=== PATIENT | male | born 1955 | race Caucasian/White ===

== ENCOUNTER 2016-07-02 19:35 | Inpatient (IN) | payer SELFPAY ==
[~2016-07-02] VITALS: Ht 180.3 cm; Wt 99.9 kg
[~2016-07-02 19:35] MED LIST: ACET-1757 PO; ASPI-621 PO; CARV12.52 PO; FURO20TA3 PO; LISI-167 PO; NICO1PAT4 TD; POTA20PA PO; SPIR25TA3 PO; WARF5TAB PO
[2016-07-02] MEDS ORDERED: DILTIAZEM 5 MG/ML, 5ML ONE (20:28)
[2016-07-02] MEDS ORDERED: ASPIRIN 81 MG TABLET CHEW ONE (20:28)
[2016-07-02] MEDS ORDERED: LORazepam 2 MG/ML, 1ML ONE (20:29)
[2016-07-02] MEDS ORDERED: DILTIAZEM 5 MG/ML, 5ML IVPush ONE (20:30)
[2016-07-02] MEDS ORDERED: ASPIRIN 81 MG TABLET CHEW PO ONE (20:30)
[2016-07-02] MEDS ORDERED: LORazepam 2 MG/ML, 1ML IVPush ONE (20:30)
[2016-07-02] MEDS ORDERED: SODIUM CHLORIDE 0.9% 1,000ML IVBOLUS ONE (20:30)
[2016-07-02] MEDS ORDERED: SODIUM CHLORIDE FLUSH 10ML SYR IVF ONE (20:30)
[2016-07-02 20:44] LABS: HEMOGLOBIN 13.9 g/dL (13.7-18.0)
[2016-07-02 20:56] LABS: BLOOD UREA NITROGEN 23 mg/dL (7-18)
[2016-07-02 21:01] LABS: ASPARTATE AMINO TRANSFERASE 31 U/L (15-37)
[2016-07-02 21:08] LABS: IS PT STATUS REG ER OR PRE ER? YES
[2016-07-02] MEDS ORDERED: HEPARIN 5,000 UNITS/ML, 1ML ONE (21:20)
[2016-07-02] MEDS ORDERED: NITROGLYCERIN OINT 2%, 1GM TP ONE ×3 (21:20→21:36)
[2016-07-02] MEDS ORDERED: HEPARIN 25,000 UNITS/500ML PMX 500 ML ONE (21:21)
[2016-07-02] MEDS ORDERED: HEPARIN 5,000 UNITS/ML, 1ML IV ONE (21:30)
[2016-07-02] MEDS: HEPARIN 25,000 UNITS/500ML PMX 500 ML IV PRN (21:30)
[2016-07-02] MEDS ORDERED: SODIUM CHLORIDE 0.9% 1,000 ML IV SCH (22:17)
[2016-07-02] MEDS: NICOTINE 14MG/24 HR PATCH.TD24 TD SCH (22:30)
[2016-07-02] MEDS ORDERED: DOCUSATE 100 MG CAPSULE PO PRN (22:30)
[2016-07-02] MEDS ORDERED: MORPHINE SULFATE 4 MG/ML, 1ML IVPush PRN (22:30)
[2016-07-02] MEDS ORDERED: ONDANSETRON 2MG/ML, 2ML IVP PRN (22:30)
[2016-07-02] MEDS ORDERED: HYDROcodone/APAP 5/325 TABLET PO PRN (22:30)
[2016-07-02] MEDS ORDERED: ACETAMINOPHEN 325 MG TABLET PO PRN (22:30)
[2016-07-02] MEDS ORDERED: POLYETHYLENE GLYCOL 17 GM PACKET PO PRN (22:30)
[2016-07-02 22:32] VITALS: BP 126/92
[2016-07-02] MEDS: CARVEDILOL 12.5 MG TABLET PO SCH (23:00)
[2016-07-02] MEDS: LISINOPRIL 10 MG TABLET PO SCH (23:01)
[2016-07-02] MEDS: FUROSEMIDE 20 MG TABLET PO SCH (23:01)
[2016-07-03 00:33] VITALS: BP 101/72
[2016-07-03 02:50] VITALS: BP 101/65
[2016-07-03 04:16] LABS: BLOOD UREA NITROGEN 23 mg/dL (7-18)
[2016-07-03 04:21] LABS: IS PT STATUS REG ER OR PRE ER? NO
[2016-07-03] MEDS: HEPARIN 5,000 UNITS/ML, 1ML IV PRN ×2 (04:38→16:31)
[2016-07-03] MEDS ORDERED: MIDAZOLAM 1 MG/ML, 5ML ONE (07:43)
[2016-07-03] MEDS ORDERED: HEPARIN 1,000 UNITS/ML, 10ML ONE (07:44)
[2016-07-03] MEDS ORDERED: LIDOCAINE 2%, 20ML ONE (07:44)
[2016-07-03] MEDS ORDERED: FENTANYL PF 100 MCG/2ML ONE (07:44)
[2016-07-03] MEDS ORDERED: VERAPAMIL 2.5 MG/ML, 2ML ONE (07:44)
[2016-07-03] MEDS ORDERED: NITROGLYCERIN 5 MG/ML, 10ML ONE (07:44)
[2016-07-03] MEDS ORDERED: TICAGRELOR 90 MG TABLET ONE (07:45)
[2016-07-03] MEDS ORDERED: BIVALIRUDIN 250 MG ONE (07:45)
[2016-07-03] MEDS ORDERED: EPTIFIBATIDE 100 ML IV ONE (08:45)
[2016-07-03] MEDS ORDERED: ASPIRIN 81 MG TABLET EC PO SCH (09:00)
[2016-07-03] MEDS: SENNA/DOCUSATE TABLET PO SCH (09:00)
[2016-07-03] MEDS: POTASSIUM CHLORIDE 20 MEQ PACKET PO SCH (09:00)
[2016-07-03] MEDS: LISINOPRIL 10 MG TABLET PO SCH ×2 (09:00→20:59)
[2016-07-03] MEDS: CARVEDILOL 12.5 MG TABLET PO SCH ×2 (09:00→21:00)
[2016-07-03] MEDS: FUROSEMIDE 20 MG TABLET PO SCH ×2 (09:39→19:29)
[2016-07-03 11:17] LABS: IS PT STATUS REG ER OR PRE ER? NO
[2016-07-03] MEDS ORDERED: SODIUM CHLORIDE 0.9% 1,000 ML IV SCH (11:30)
[2016-07-03 12:57] VITALS: BP 105/73
[2016-07-03] MEDS: EPTIFIBATIDE 100 ML IV SCH ×2 (13:17→17:32)
[2016-07-03 18:32] LABS: IS PT STATUS REG ER OR PRE ER? NO
[2016-07-03] MEDS: NICOTINE 14MG/24 HR PATCH.TD24 TD SCH (19:30)
[2016-07-03 19:37] VITALS: BP 128/82
[2016-07-03] MEDS: ATORVASTATIN 20 MG TABLET PO SCH (20:59)
[2016-07-03] MEDS: TICAGRELOR 90 MG TABLET PO SCH (20:59)
[2016-07-03] MEDS: ASPIRIN 81 MG TABLET EC PO SCH (21:06)
[2016-07-03] MEDS: TRAZODONE 50MG TABLET PO PRN (21:56)
[2016-07-04] MEDS ORDERED: LORazepam 2 MG/ML, 1ML IVPush ONE (00:30)
[2016-07-04] MEDS ORDERED: LORazepam 2 MG/ML, 1ML ONE (00:31)
[2016-07-04 00:38] VITALS: BP 134/98
[2016-07-04] MEDS: HEPARIN 5,000 UNITS/ML, 1ML IV PRN ×4 (00:52→22:42)
[2016-07-04] MEDS: HEPARIN 25,000 UNITS/500ML PMX 500 ML IV PRN ×2 (03:30→20:15)
[2016-07-04 07:42] VITALS: BP 112/65
[2016-07-04] MEDS: POTASSIUM CHLORIDE 20 MEQ PACKET PO SCH (08:16)
[2016-07-04] MEDS: CARVEDILOL 12.5 MG TABLET PO SCH ×2 (08:17→20:16)
[2016-07-04] MEDS: FUROSEMIDE 20 MG TABLET PO SCH ×2 (08:17→20:15)
[2016-07-04] MEDS: TICAGRELOR 90 MG TABLET PO SCH ×2 (08:17→20:16)
[2016-07-04] MEDS: LISINOPRIL 10 MG TABLET PO SCH ×2 (08:18→20:16)
[2016-07-04] MEDS: SENNA/DOCUSATE TABLET PO SCH (08:18)
[2016-07-04] MEDS: SPIRONOLACTONE 25 MG TABLET PO SCH (08:36)
[2016-07-04 08:41] LABS: IS PT STATUS REG ER OR PRE ER? NO
[2016-07-04] MEDS: WARFARIN MODERAT DOSE PROTOCOL XX SCH (12:00)
[2016-07-04 12:41] VITALS: BP 109/67
[2016-07-04 16:35] LABS: IS PT STATUS REG ER OR PRE ER? NO
[2016-07-04] MEDS ORDERED: WARFARIN 7.5 MG TABLET PO-COUM ONE (18:00)
[2016-07-04 20:10] VITALS: BP 109/77
[2016-07-04] MEDS: ATORVASTATIN 20 MG TABLET PO SCH (20:16)
[2016-07-04] MEDS: NICOTINE 14MG/24 HR PATCH.TD24 TD SCH (20:17)
[2016-07-05] MEDS: TRAZODONE 50MG TABLET PO PRN ×2 (00:34→23:32)
[2016-07-05 02:05] LABS: IS PT STATUS REG ER OR PRE ER? NO
[2016-07-05 02:30] VITALS: BP 113/76
[2016-07-05] MEDS: ASPIRIN 81 MG TABLET EC PO SCH (04:43)
[2016-07-05 04:53] LABS: HEMOGLOBIN 12.5 g/dL (13.7-18.0)
[2016-07-05 05:04] LABS: BLOOD UREA NITROGEN 20 mg/dL (7-18)
[2016-07-05 07:31] VITALS: BP 110/74
[2016-07-05] MEDS: SENNA/DOCUSATE TABLET PO SCH (09:00)
[2016-07-05] MEDS: TICAGRELOR 90 MG TABLET PO SCH ×2 (09:20→21:07)
[2016-07-05] MEDS: SPIRONOLACTONE 25 MG TABLET PO SCH (09:20)
[2016-07-05] MEDS: LISINOPRIL 20 MG TABLET PO SCH (09:21)
[2016-07-05] MEDS: CARVEDILOL 12.5 MG TABLET PO SCH ×2 (09:21→21:07)
[2016-07-05] MEDS: FUROSEMIDE 20 MG TABLET PO SCH ×2 (09:21→21:07)
[2016-07-05] MEDS: POTASSIUM CHLORIDE 20 MEQ PACKET PO SCH (09:21)
[2016-07-05] MEDS: HEPARIN 25,000 UNITS/500ML PMX 500 ML IV PRN ×2 (11:05→23:32)
[2016-07-05] MEDS: WARFARIN MODERAT DOSE PROTOCOL XX SCH (12:00)
[2016-07-05] MEDS: HEPARIN 5,000 UNITS/ML, 1ML IV PRN (13:03)
[2016-07-05 14:40] VITALS: BP 92/56
[2016-07-05] MEDS ORDERED: WARFARIN 7.5 MG TABLET PO-COUM ONE (18:00)
[2016-07-05 19:08] VITALS: BP 109/75
[2016-07-05] MEDS: NICOTINE 14MG/24 HR PATCH.TD24 TD SCH (21:02)
[2016-07-05] MEDS: ATORVASTATIN 20 MG TABLET PO SCH (21:08)
[2016-07-06 02:37] VITALS: BP 102/67
[2016-07-06] MEDS: ASPIRIN 81 MG TABLET EC PO SCH (05:27)
[2016-07-06 08:25] VITALS: BP 113/76
[2016-07-06] MEDS: SENNA/DOCUSATE TABLET PO SCH (08:27)
[2016-07-06] MEDS: LISINOPRIL 20 MG TABLET PO SCH (08:27)
[2016-07-06] MEDS: SPIRONOLACTONE 25 MG TABLET PO SCH (08:28)
[2016-07-06] MEDS: TICAGRELOR 90 MG TABLET PO SCH ×2 (08:28→21:03)
[2016-07-06] MEDS: FUROSEMIDE 20 MG TABLET PO SCH ×2 (08:28→21:04)
[2016-07-06] MEDS: CARVEDILOL 12.5 MG TABLET PO SCH ×2 (08:28→21:03)
[2016-07-06 09:01] LABS: BLOOD UREA NITROGEN 22 mg/dL (7-18)
[2016-07-06] MEDS: POTASSIUM CHLORIDE 20 MEQ PACKET PO SCH ×2 (11:18→21:04)
[2016-07-06] MEDS: WARFARIN MODERAT DOSE PROTOCOL XX SCH (11:51)
[2016-07-06] MEDS: HEPARIN 25,000 UNITS/500ML PMX 500 ML IV PRN (12:02)
[2016-07-06 15:15] VITALS: BP 105/67
[2016-07-06] MEDS ORDERED: WARFARIN 7.5 MG TABLET PO-COUM ONE (18:00)
[2016-07-06 19:12] VITALS: BP 107/71
[2016-07-06] MEDS: ATORVASTATIN 80 MG TABLET PO SCH (21:04)
[2016-07-06] MEDS: NICOTINE 14MG/24 HR PATCH.TD24 TD SCH (21:06)
[2016-07-07] MEDS: HEPARIN 25,000 UNITS/500ML PMX 500 ML IV PRN ×2 (00:04→11:48)
[2016-07-07 01:31] VITALS: BP 105/75
[2016-07-07 04:24] VITALS: BP 115/77
[2016-07-07] MEDS: ASPIRIN 81 MG TABLET EC PO SCH (05:18)
[2016-07-07 05:47] LABS: ANTI-Xa-UNFRACTIONATED HEP 0.33 IU/mL (0.30-0.70)
[2016-07-07 07:55] VITALS: BP 122/81
[2016-07-07] MEDS: TICAGRELOR 90 MG TABLET PO SCH ×2 (08:23→20:56)
[2016-07-07] MEDS: SENNA/DOCUSATE TABLET PO SCH (08:23)
[2016-07-07] MEDS: LISINOPRIL 20 MG TABLET PO SCH (08:23)
[2016-07-07] MEDS: SPIRONOLACTONE 25 MG TABLET PO SCH (08:23)
[2016-07-07] MEDS: CARVEDILOL 12.5 MG TABLET PO SCH ×2 (08:23→20:57)
[2016-07-07] MEDS: FUROSEMIDE 20 MG TABLET PO SCH ×2 (08:24→20:57)
[2016-07-07] MEDS: POTASSIUM CHLORIDE 20 MEQ PACKET PO SCH ×2 (08:24→20:57)
[2016-07-07 08:35] LABS: HEMOGLOBIN 13.5 g/dL (13.7-18.0)
[2016-07-07 09:04] LABS: BLOOD UREA NITROGEN 22 mg/dL (7-18)
[2016-07-07] MEDS: WARFARIN MODERAT DOSE PROTOCOL XX SCH (09:27)
[2016-07-07 15:59] VITALS: BP 93/61
[2016-07-07] MEDS ORDERED: WARFARIN 7.5 MG TABLET PO-COUM ONE (18:00)
[2016-07-07 20:44] VITALS: BP 103/70
[2016-07-07] MEDS: ATORVASTATIN 80 MG TABLET PO SCH (20:57)
[2016-07-07] MEDS: NICOTINE 14MG/24 HR PATCH.TD24 TD SCH (20:58)
[2016-07-08] MEDS: HEPARIN 25,000 UNITS/500ML PMX 500 ML IV PRN (01:56)
[2016-07-08 02:45] VITALS: BP 103/68
[2016-07-08 05:50] LABS: HEMOGLOBIN 13.7 g/dL (13.7-18.0)
[2016-07-08 06:00] LABS: ANTI-Xa-UNFRACTIONATED HEP 0.4 IU/mL (0.30-0.70)
[2016-07-08 06:03] LABS: BLOOD UREA NITROGEN 26 mg/dL (7-18)
[2016-07-08] MEDS: ASPIRIN 81 MG TABLET EC PO SCH (06:32)
[2016-07-08 07:45] VITALS: BP 111/73
[2016-07-08] MEDS ORDERED: CLOP75TA22 PO (08:10)
[2016-07-08] MEDS ORDERED: POTA20PA8 PO (08:10)
[2016-07-08] MEDS ORDERED: SPIR25TA PO (08:10)
[2016-07-08] MEDS ORDERED: ATOR80TA75 PO (08:10)
[2016-07-08] MEDS ORDERED: CLOPIDOGREL 300 MG TABLET PO ONE (08:30)
[2016-07-08] MEDS ORDERED: LISINOPRIL 10 MG TABLET PO SCH (09:00)
[2016-07-08] MEDS: SENNA/DOCUSATE TABLET PO SCH (09:12)
[2016-07-08] MEDS: POTASSIUM CHLORIDE 20 MEQ PACKET PO SCH (09:12)
[2016-07-08] MEDS: FUROSEMIDE 20 MG TABLET PO SCH (09:12)
[2016-07-08] MEDS: CARVEDILOL 12.5 MG TABLET PO SCH (09:13)
[2016-07-08] MEDS: SPIRONOLACTONE 25 MG TABLET PO SCH (09:13)
[2016-07-08] MEDS: TICAGRELOR 90 MG TABLET PO SCH (09:13)
[2016-07-08] MEDS ORDERED: FLU VACC QS2016-17 (36MOS+)UP/PF 0.5 ML IM-VACC ONE (12:00)
[2016-07-08] MEDS ORDERED: WARF3TAB PO-COUM (13:14)
[2016-07-08] MEDS ORDERED: WARFARIN 3 MG TABLET PO-COUM ONE (18:00)
== END 2016-07-08 15:00 | disposition home or self-care (01) | DRG 246 ==
LOC: ED 21:11 → EDIP 21:35 → 5SO 22:23
PROVIDERS: ADMIT Family Medicine; ATTEND Internal Medicine
PROC: 027034Z Dilation of Coronary Artery, One Artery with Drug-eluting Intraluminal Device, Percutaneous Approach (ICD-10-PCS; principal; 2016-07-03)
PROC: 4A023N7 Measurement of Cardiac Sampling and Pressure, Left Heart, Percutaneous Approach (ICD-10-PCS; 2016-07-03)
PROC: B2111ZZ Fluoroscopy of Multiple Coronary Arteries using Low Osmolar Contrast (ICD-10-PCS; 2016-07-03)
DX: I21.4 Non-ST elevation (NSTEMI) myocardial infarction (principal); I50.23 Acute on chronic systolic (congestive) heart failure; I42.6 Alcoholic cardiomyopathy; I13.0 Hypertensive heart and chronic kidney disease with heart failure and stage 1 through stage 4 chronic kidney disease, or unspecified chronic kidney disease; N17.9 Acute kidney failure, unspecified; E87.1 Hypo-osmolality and hyponatremia; D68.59 Other primary thrombophilia; I48.0 Paroxysmal atrial fibrillation; I27.2 Other secondary pulmonary hypertension; F17.200 Nicotine dependence, unspecified, uncomplicated; M10.9 Gout, unspecified; I48.2 Chronic atrial fibrillation; E78.5 Hyperlipidemia, unspecified; I44.7 Left bundle-branch block, unspecified; I25.119 Atherosclerotic heart disease of native coronary artery with unspecified angina pectoris; F41.9 Anxiety disorder, unspecified; I25.5 Ischemic cardiomyopathy; Z79.82 Long term (current) use of aspirin; Z79.899 Other long term (current) drug therapy; N18.9 Chronic kidney disease, unspecified; J44.9 Chronic obstructive pulmonary disease, unspecified; F10.20 Alcohol dependence, uncomplicated; I34.0 Nonrheumatic mitral (valve) insufficiency; Z79.01 Long term (current) use of anticoagulants; E87.6 Hypokalemia; F32.9 Major depressive disorder, single episode, unspecified
CPT/HCPCS: 36415; 71010; 80048; 80053; 80061; 83735; 84100; 84436; 84443; 84484; 85025; 85520; 85610; 93005; 93458; 96365; 96375; C1894; C8929; C9600; J0583; J1644; J2250; J3010; J3490; C1725; C1769; C1874; C1887; J1327; J2060; J7030; Q9967

== ENCOUNTER 2017-11-21 11:25 | Inpatient (IN) | payer OTHER ==
[~2017-11-21] VITALS: Ht 180.3 cm; Wt 101.1 kg
[~2017-11-21 11:25] MED LIST changes: +ATOR-2 PO; +CLOP75TA52 PO; +NICO-486 TD; -NICO1PAT4 TD; +POTA20PA25 PO; +SPIR25TA PO; -SPIR25TA3 PO; +SPIR25TA5 PO; +WARF3TAB PO-COUM
[2017-11-21] MEDS ORDERED: SODIUM CHLORIDE FLUSH 10ML SYR IVF ONE (12:00)
[2017-11-21] MEDS ORDERED: ONDANSETRON 2MG/ML, 2ML IVPush ONE (12:00)
[2017-11-21] MEDS ORDERED: SODIUM CHLORIDE 0.9% 1,000ML IVBOLUS ONE (12:00)
[2017-11-21] MEDS ORDERED: ONDANSETRON 2MG/ML, 2ML ONE (12:04)
[2017-11-21 12:16] LABS: BASOPHILS # (AUTO) 0.03 x10^3/uL (0-0.1); BASOPHILS % (AUTO) 0 % (0-1); EOSINOPHILS # (AUTO) 0.14 x10^3/uL (0-0.4); EOSINOPHILS % (AUTO) 1 % (1-7); LYMPHOCYTES # (AUTO) 1.23 x10^3/uL (1-3.4); LYMPHOCYTES % (AUTO) 11 % (22-44); MD NO; MEAN CORPUSCULAR HEMOGLOBIN 33.4 pg (27.5-34.5); MEAN CORPUSCULAR VOLUME 98.3 fL (81-97); MEAN PLATELET VOLUME 8.7 fL (7.4-10.4); MONOCYTES # (AUTO) 1.01 x10^3/uL (0.2-0.8); MONOCYTES % (AUTO) 9 % (2-9); NEUTROPHILS # (AUTO) 8.88 x10^3/uL (1.8-6.8); NEUTROPHILS % (AUTO) 79 % (42-75); PLATELET COUNT 177 x10^3/uL (130-400); RED BLOOD COUNT 3.91 x10^6/uL (4.38-5.82); RED CELL DISTRIBUTION WIDTH 16.1 % (9.4-14.8)
[2017-11-21 12:23] LABS: ANION GAP 10 mmol/L (5-15); CALCIUM 8.6 mg/dL (8.5-10.1); CHLORIDE 112 mmol/L (98-107)
[2017-11-21 12:28] LABS: ALANINE AMINOTRANSFERASE 27 U/L (12-78); ALKALINE PHOSPHATASE 91 U/L (45-117); CREATININE 1.39 mg/dL (0.7-1.3); TOTAL PROTEIN 7.7 g/dL (6.4-8.2)
[2017-11-21 12:30] LABS: INTERNATIONAL NORMALIZED RATIO 1.47 (0.93-1.1)
[2017-11-21 12:32] LABS: TROPONIN I 0.685 ng/mL (0.000-0.045)
[2017-11-21] MEDS ORDERED: HEPARIN 5,000 UNITS/ML, 1ML IV PRN (13:00)
[2017-11-21] MEDS ORDERED: HEPARIN 25,000 UNITS/500ML PMX 500 ML IV PRN (13:00)
[2017-11-21] MEDS ORDERED: HEPARIN 5,000 UNITS/ML, 1ML IV ONE ×2 (13:00→13:30)
[2017-11-21] MEDS ORDERED: HEPARIN 5,000 UNITS/ML, 1ML ONE (13:29)
[2017-11-21] MEDS ORDERED: HEPARIN 25,000 UNITS/500ML PMX 500 ML ONE (13:29)
[2017-11-21] MEDS: HEPARIN 25,000 UNITS/500ML PMX 500 ML IV PRN (13:38)
[2017-11-21 13:48] LABS: TROPONIN I 0.633 ng/mL (0.000-0.045)
[2017-11-21] MEDS ORDERED: WARF-36 PO (13:59)
[2017-11-21] MEDS ORDERED: ONDANSETRON ODT 4 MG PO PRN (14:00)
[2017-11-21] MEDS ORDERED: DOCUSATE 100 MG CAPSULE PO PRN (14:00)
[2017-11-21] MEDS ORDERED: ACETAMINOPHEN 325 MG TABLET PO PRN (14:00)
[2017-11-21] MEDS ORDERED: ONDANSETRON 2MG/ML, 2ML IVPush PRN (14:00)
[2017-11-21] MEDS ORDERED: hydrALAzine 20 MG/ML, 1ML IVPush PRN (14:00)
[2017-11-21] MEDS ORDERED: BISACODYL 10 MG SUPP PR PRN (14:00)
[2017-11-21] MEDS ORDERED: NITROGLYCERIN 0.4 MG BOTTLE (25 TABS) SL PRN (14:00)
[2017-11-21] MEDS ORDERED: HYDR25TA11 PO (14:05)
[2017-11-21] MEDS ORDERED: ENAL10TA PO (14:05)
[2017-11-21 14:51] VITALS: BP 134/89
[2017-11-21] MEDS: FUROSEMIDE 20 MG/2 ML IV SCH (17:44)
[2017-11-21] MEDS: CARVEDILOL 6.25 MG TABLET PO SCH (17:45)
[2017-11-21 17:49] VITALS: BP 120/78
[2017-11-21] MEDS ORDERED: WARFARIN 3 MG TABLET PO-COUM SCH (18:00)
[2017-11-21 19:55] LABS: TROPONIN I 0.568 ng/mL (0.000-0.045)
[2017-11-21 20:00] VITALS: BP 113/76
[2017-11-21] MEDS: LISINOPRIL 10 MG TABLET PO SCH ×2 (20:30→20:33)
[2017-11-21] MEDS: HEPARIN 5,000 UNITS/ML, 1ML IV PRN (20:30)
[2017-11-21] MEDS: POTASSIUM CHLORIDE 20 MEQ TAB.ER.PRT PO SCH (20:31)
[2017-11-21] MEDS: ATORVASTATIN 40 MG TABLET PO SCH (20:31)
[2017-11-21] MEDS ORDERED: FUROSEMIDE 20 MG TABLET PO SCH (21:00)
[2017-11-21] MEDS ORDERED: ATORVASTATIN 80 MG TABLET PO SCH (21:00)
[2017-11-21] MEDS ORDERED: TEMPLATE NON-FORMULARY MED. (Carvedilol** 12.5 MG) PO SCH (21:00)
[2017-11-21 21:12] LABS: MICROSCOPIC AUTO
[2017-11-21 21:16] LABS: CULTURE INDICATED? YES
[2017-11-22 02:27] LABS: ALBUMIN 3.3 g/dL (3.4-5.0); ANION GAP 8 mmol/L (5-15); CALCIUM 8.2 mg/dL (8.5-10.1); CHLORIDE 112 mmol/L (98-107)
[2017-11-22 02:32] LABS: TROPONIN I 0.571 ng/mL (0.000-0.045)
[2017-11-22 02:33] LABS: ALANINE AMINOTRANSFERASE 22 U/L (12-78); ALKALINE PHOSPHATASE 72 U/L (45-117); BILIRUBIN,TOTAL 1.2 mg/dL (0.2-1.0); CHOL/HDL RATIO 1.6; CHOLESTEROL, TOTAL 70 mg/dL (140-239); CREATININE 1.21 mg/dL (0.7-1.3); HDL CHOL % 61 % (26-37); HDL CHOLESTEROL (DIRECT) 43 mg/dL (40-60); LDL CHOLESTEROL,CALCULATED 20 mg/dL (54-169); LDL/HDL RATIO 0.5 (0.5-3.0); TOTAL PROTEIN 6.7 g/dL (6.4-8.2); TRIGLYCERIDES 35 mg/dL (50-200); VLDL CHOLESTEROL 7 mg/dL (0-25)
[2017-11-22 03:02] VITALS: BP 138/92
[2017-11-22 06:42] VITALS: BP 124/85
[2017-11-22] MEDS: ASPIRIN 81 MG TABLET EC PO SCH (06:45)
[2017-11-22] MEDS: CARVEDILOL 6.25 MG TABLET PO SCH ×2 (06:45→17:43)
[2017-11-22 08:06] LABS: BASOPHILS # (AUTO) 0.03 x10^3/uL (0-0.1); BASOPHILS % (AUTO) 0 % (0-1); EOSINOPHILS # (AUTO) 0.23 x10^3/uL (0-0.4); EOSINOPHILS % (AUTO) 3 % (1-7); LYMPHOCYTES # (AUTO) 1.56 x10^3/uL (1-3.4); LYMPHOCYTES % (AUTO) 20 % (22-44); MD NO; MEAN CORPUSCULAR HEMOGLOBIN 32.8 pg (27.5-34.5); MEAN CORPUSCULAR HGB CONC 33.6 g/dL (33.2-36.2); MEAN CORPUSCULAR VOLUME 97.8 fL (81-97); MEAN PLATELET VOLUME 8.4 fL (7.4-10.4); MONOCYTES # (AUTO) 0.64 x10^3/uL (0.2-0.8); MONOCYTES % (AUTO) 8 % (2-9); NEUTROPHILS # (AUTO) 5.36 x10^3/uL (1.8-6.8); NEUTROPHILS % (AUTO) 69 % (42-75); PLATELET COUNT 141 x10^3/uL (130-400); RED BLOOD COUNT 3.49 x10^6/uL (4.38-5.82); RED CELL DISTRIBUTION WIDTH 15.6 % (9.4-14.8)
[2017-11-22 08:21] LABS: INTERNATIONAL NORMALIZED RATIO 1.49 (0.93-1.1); PROTHROMBIN TIME 15.2 Seconds (9.6-11.5)
[2017-11-22] MEDS: FUROSEMIDE 20 MG/2 ML IV SCH ×2 (08:21→17:44)
[2017-11-22] MEDS: LISINOPRIL 10 MG TABLET PO SCH (08:22)
[2017-11-22] MEDS: POTASSIUM CHLORIDE 20 MEQ TAB.ER.PRT PO SCH ×2 (08:22→20:10)
[2017-11-22] MEDS: SENNA/DOCUSATE TABLET PO SCH (08:23)
[2017-11-22] MEDS: CLOPIDOGREL 75 MG TABLET PO SCH (08:23)
[2017-11-22] MEDS: HEPARIN 5,000 UNITS/ML, 1ML IV PRN (08:35)
[2017-11-22] MEDS ORDERED: CLOPIDOGREL 75 MG TABLET PO SCH (09:00)
[2017-11-22] MEDS ORDERED: ASPIRIN 81 MG TABLET EC PO SCH (09:00)
[2017-11-22] MEDS: HEPARIN 25,000 UNITS/500ML PMX 500 ML IV PRN (09:40)
[2017-11-22 09:53] VITALS: BP 119/79
[2017-11-22 15:00] VITALS: BP 119/84
[2017-11-22] MEDS ORDERED: MIDAZOLAM 1 MG/ML, 5ML ONE (15:40)
[2017-11-22] MEDS ORDERED: FENTANYL PF 100 MCG/2ML ONE (15:40)
[2017-11-22] MEDS ORDERED: VERAPAMIL 2.5 MG/ML, 2ML ONE (15:40)
[2017-11-22] MEDS ORDERED: HEPARIN 1,000 UNITS/ML, 10ML ONE ×2 (15:40→16:02)
[2017-11-22] MEDS ORDERED: BIVALIRUDIN 250 MG ONE (15:40)
[2017-11-22] MEDS ORDERED: TICAGRELOR 90 MG TABLET ONE (15:40)
[2017-11-22] MEDS ORDERED: LIDOCAINE-MPF 2%, 2ML ONE (15:41)
[2017-11-22 16:25] VITALS: BP 125/88
[2017-11-22] MEDS ORDERED: WARFARIN 7.5 MG TABLET PO-COUM ONE (18:00)
[2017-11-22 20:00] VITALS: BP 106/71
[2017-11-22] MEDS: ATORVASTATIN 40 MG TABLET PO SCH (20:09)
[2017-11-23 01:23] VITALS: BP 115/75
[2017-11-23 05:33] LABS: INTERNATIONAL NORMALIZED RATIO 1.43 (0.93-1.1); PROTHROMBIN TIME 14.6 Seconds (9.6-11.5)
[2017-11-23 06:47] VITALS: BP 132/82
[2017-11-23] MEDS: CARVEDILOL 6.25 MG TABLET PO SCH ×2 (06:50→17:53)
[2017-11-23] MEDS: ASPIRIN 81 MG TABLET EC PO SCH (06:50)
[2017-11-23 09:06] VITALS: BP 118/69
[2017-11-23] MEDS: CLOPIDOGREL 75 MG TABLET PO SCH (09:23)
[2017-11-23] MEDS: POTASSIUM CHLORIDE 20 MEQ TAB.ER.PRT PO SCH ×2 (09:23→21:25)
[2017-11-23] MEDS: SENNA/DOCUSATE TABLET PO SCH (09:23)
[2017-11-23] MEDS: FUROSEMIDE 20 MG/2 ML IV SCH (09:23)
[2017-11-23] MEDS: LISINOPRIL 10 MG TABLET PO SCH (09:24)
[2017-11-23] MEDS: FUROSEMIDE 20 MG TABLET PO SCH (10:00)
[2017-11-23] MEDS: SPIRONOLACTONE 25 MG TABLET PO SCH ×2 (10:12→21:24)
[2017-11-23 13:15] VITALS: BP 117/79
[2017-11-23] MEDS ORDERED: WARFARIN 7.5 MG TABLET PO-COUM ONE (18:00)
[2017-11-23 20:55] VITALS: BP 133/85
[2017-11-23] MEDS: ATORVASTATIN 40 MG TABLET PO SCH (21:25)
[2017-11-24 00:30] VITALS: BP 128/91
[2017-11-24 05:06] LABS: BASOPHILS # (AUTO) 0.03 x10^3/uL (0-0.1); BASOPHILS % (AUTO) 0 % (0-1); EOSINOPHILS # (AUTO) 0.32 x10^3/uL (0-0.4); EOSINOPHILS % (AUTO) 5 % (1-7); LYMPHOCYTES # (AUTO) 1.73 x10^3/uL (1-3.4); LYMPHOCYTES % (AUTO) 26 % (22-44); MD NO; MEAN CORPUSCULAR HEMOGLOBIN 33.4 pg (27.5-34.5); MEAN CORPUSCULAR HGB CONC 34.2 g/dL (33.2-36.2); MEAN CORPUSCULAR VOLUME 97.7 fL (81-97); MEAN PLATELET VOLUME 8.6 fL (7.4-10.4); MONOCYTES # (AUTO) 0.75 x10^3/uL (0.2-0.8); MONOCYTES % (AUTO) 11 % (2-9); NEUTROPHILS # (AUTO) 3.85 x10^3/uL (1.8-6.8); NEUTROPHILS % (AUTO) 58 % (42-75); PLATELET COUNT 180 x10^3/uL (130-400); RED BLOOD COUNT 3.81 x10^6/uL (4.38-5.82); RED CELL DISTRIBUTION WIDTH 16.1 % (9.4-14.8)
[2017-11-24 05:13] LABS: INTERNATIONAL NORMALIZED RATIO 1.5 (0.93-1.1); PROTHROMBIN TIME 15.3 Seconds (9.6-11.5)
[2017-11-24 05:15] LABS: ANION GAP 9 mmol/L (5-15); CALCIUM 8.2 mg/dL (8.5-10.1); CHLORIDE 108 mmol/L (98-107); CREATININE 1.24 mg/dL (0.7-1.3)
[2017-11-24] MEDS: CARVEDILOL 6.25 MG TABLET PO SCH ×2 (05:46→17:42)
[2017-11-24] MEDS: ASPIRIN 81 MG TABLET EC PO SCH (05:46)
[2017-11-24 07:59] VITALS: BP 121/86
[2017-11-24] MEDS: POTASSIUM CHLORIDE 20 MEQ TAB.ER.PRT PO SCH ×2 (10:04→21:53)
[2017-11-24] MEDS: CLOPIDOGREL 75 MG TABLET PO SCH (10:05)
[2017-11-24] MEDS: SPIRONOLACTONE 25 MG TABLET PO SCH ×2 (10:05→21:54)
[2017-11-24] MEDS: LISINOPRIL 10 MG TABLET PO SCH (10:05)
[2017-11-24] MEDS: FUROSEMIDE 20 MG TABLET PO SCH (10:05)
[2017-11-24] MEDS: SENNA/DOCUSATE TABLET PO SCH (10:05)
[2017-11-24 14:31] VITALS: BP 109/71
[2017-11-24] MEDS: ENOXAPARIN 100 MG/ML SQ SCH (17:42)
[2017-11-24] MEDS ORDERED: WARFARIN 5 MG TABLET PO-COUM SCH (18:00)
[2017-11-24] MEDS ORDERED: WARFARIN 10 MG TABLET PO-COUM ONE (18:00)
[2017-11-24 21:03] VITALS: BP 116/80
[2017-11-24] MEDS: ATORVASTATIN 40 MG TABLET PO SCH (21:53)
[2017-11-25] MEDS: ENOXAPARIN 100 MG/ML SQ SCH
[2017-11-25 01:10] VITALS: BP 120/82
[2017-11-25 05:20] LABS: CHLORIDE 108 mmol/L (98-107)
[2017-11-25 05:22] LABS: INTERNATIONAL NORMALIZED RATIO 2.06 (0.93-1.1); PROTHROMBIN TIME 20.9 Seconds (9.6-11.5)
[2017-11-25 05:28] LABS: ANION GAP 5 mmol/L (5-15); CALCIUM 9.2 mg/dL (8.5-10.1); CREATININE 1.26 mg/dL (0.7-1.3)
[2017-11-25] MEDS: CARVEDILOL 6.25 MG TABLET PO SCH (05:57)
[2017-11-25] MEDS: ASPIRIN 81 MG TABLET EC PO SCH (05:57)
[2017-11-25 08:02] VITALS: BP 123/88
[2017-11-25] MEDS ORDERED: FUROSEMIDE 20 MG TABLET PO SCH (09:00)
[2017-11-25] MEDS: SENNA/DOCUSATE TABLET PO SCH (09:00)
[2017-11-25] MEDS: LISINOPRIL 10 MG TABLET PO SCH (09:03)
[2017-11-25] MEDS: POTASSIUM CHLORIDE 20 MEQ TAB.ER.PRT PO SCH (09:03)
[2017-11-25] MEDS: SPIRONOLACTONE 25 MG TABLET PO SCH (09:03)
[2017-11-25] MEDS: CLOPIDOGREL 75 MG TABLET PO SCH (09:03)
[2017-11-25] MEDS ORDERED: WARF-36 PO (09:04)
[2017-11-25] MEDS ORDERED: FURO20TA3 PO (09:04)
[2017-11-25] MEDS ORDERED: NITR0.4T SL (09:04)
[2017-11-25] MEDS ORDERED: CARV12.52 PO (09:04)
[2017-11-25] MEDS ORDERED: POTA20PA25 PO (09:04)
[2017-11-25] MEDS ORDERED: POLY17PO5 PO (09:04)
[2017-11-25] MEDS ORDERED: WARFARIN 7.5 MG TABLET PO-COUM ONE (18:00)
== END 2017-11-25 12:08 | disposition home or self-care (01) | DRG 280 ==
LOC: ED 12:28 → EDIP 12:46 → 5SO 14:43
PROVIDERS: ADMIT Internal Medicine; ATTEND Internal Medicine
PROC: 4A033BC Measurement of Arterial Pressure, Coronary, Percutaneous Approach (ICD-10-PCS; principal; 2017-11-22)
PROC: 4A023N7 Measurement of Cardiac Sampling and Pressure, Left Heart, Percutaneous Approach (ICD-10-PCS; 2017-11-22)
PROC: B2111ZZ Fluoroscopy of Multiple Coronary Arteries using Low Osmolar Contrast (ICD-10-PCS; 2017-11-22)
PROC: B2151ZZ Fluoroscopy of Left Heart using Low Osmolar Contrast (ICD-10-PCS; 2017-11-22)
DX: I21.4 Non-ST elevation (NSTEMI) myocardial infarction (principal); I50.23 Acute on chronic systolic (congestive) heart failure; E46 Unspecified protein-calorie malnutrition; N17.9 Acute kidney failure, unspecified; I42.6 Alcoholic cardiomyopathy; I42.9 Cardiomyopathy, unspecified; I11.0 Hypertensive heart disease with heart failure; D53.9 Nutritional anemia, unspecified; D72.829 Elevated white blood cell count, unspecified; E66.9 Obesity, unspecified; F10.10 Alcohol abuse, uncomplicated; F17.200 Nicotine dependence, unspecified, uncomplicated; I25.10 Atherosclerotic heart disease of native coronary artery without angina pectoris; I34.0 Nonrheumatic mitral (valve) insufficiency; I51.3 Intracardiac thrombosis, not elsewhere classified; I44.7 Left bundle-branch block, unspecified; I27.20 Pulmonary hypertension, unspecified; I48.2 Chronic atrial fibrillation; F32.9 Major depressive disorder, single episode, unspecified; M10.9 Gout, unspecified; R33.9 Retention of urine, unspecified; Z68.31 Body mass index [BMI] 31.0-31.9, adult; I25.2 Old myocardial infarction; Z79.01 Long term (current) use of anticoagulants; Z80.9 Family history of malignant neoplasm, unspecified; Z95.5 Presence of coronary angioplasty implant and graft; Z79.899 Other long term (current) drug therapy
CPT/HCPCS: 36415; 71045; 80048; 80053; 80061; 81001; 83605; 83735; 83880; 84100; 84443; 84484; 85025; 85520; 85610; 87086; 93005; 93458; 93571; 96374; 96375; 99156; 99291; C1769; C1894; C8929; J0583; J1644; J1650; J2250; J2405; J3010; J3490; C1887; J1940; J7030; Q9967

== ENCOUNTER → 2020-03-05 | Outpatient (CLI) | payer MEDICARE ==
[~2020-03-05] MED LIST changes: -ACET-1757 PO; +ACET-2065 PO; -ASPI-621 PO; +ASPI81TA45 PO; +BACITRACIN 50,000 UNIT ONE; +BACITRACIN OINT 500U/GM, 15 GM ONE; +BUPIVACAINE/PF 0.5% ONE; +ENAL10TA9 PO; +HYDR-826 PO; +NITR0.4T41 SL; +POLY17PO5 PO; -POTA20PA PO; +POTA20PA31 PO; +WARF-36 PO; -WARF5TAB PO; +WARF5TAB2 PO
== END | disposition home or self-care (01) ==
LOC: CFH 12:54
PROVIDERS: ATTEND Internal Medicine Clinical Cardiac Electrophysiology
DX: I08.3 Combined rheumatic disorders of mitral, aortic and tricuspid valves (principal); I11.9 Hypertensive heart disease without heart failure; I42.9 Cardiomyopathy, unspecified
CPT/HCPCS: 93306

== ENCOUNTER 2020-09-25 19:31 | Inpatient (IN) | payer MEDICARE ==
[~2020-09-25] VITALS: Ht 177.8 cm; Wt 87.6 kg
[~2020-09-25 19:31] MED LIST changes: -BACITRACIN 50,000 UNIT ONE; -BACITRACIN OINT 500U/GM, 15 GM ONE; -BUPIVACAINE/PF 0.5% ONE
--- NOTE | 2020-09-25 19:49 | NUR ---
INITIAL PT CONTACT. PT PRESENTS TO ED C/O DIFFICULTY BREATHING "FOR A FEW WEEKS ON AND OFF BUT TODAY IT GOT WORSE." PT STATES "I HAVE BEEN MORE STRESSED AND ANXIOUS RECENTLY, NOT FEELING WELL, I HAVE BEEN MUCH MORE TIRED THAN NORMAL, JUST KIND OF WEAK FEELING AND I FEEL LIKE MY HEART HAS BEEN GOING IN AND OUT OF FUNNY RHYTHMS." HX OF CARDDIOMYOPATHY AND AFIB. PT REPORTS INCREASED DEPRESSION RECENTLY, "THIS KIND OF THING HAPPENS WHEN I GET MORE DEPRESSED." DENIES SI. PT SITTING UPRIGHT ON GURNEY, ANXIOUS IN ROOM. RESPIRATIONS EQUAL AND UNLABORED. PT PLACED ON CONTINUOUS PULSE OX AND CARDIAC MONITORING. CALL LIGHT AND BELONGINGS WITHIN REACH. ERP AT BEDSIDE.
[2020-09-25 20:25] LABS: BASOPHILS % (AUTO) 1 % (0-1); EOSINOPHILS % (AUTO) 3 % (1-7); LYMPHOCYTES % (AUTO) 22 % (22-44); MD NO; MEAN CORPUSCULAR HEMOGLOBIN 33.3 pg (27.5-34.5); MEAN CORPUSCULAR HGB CONC 34.4 g/dL (33.2-36.2); MEAN PLATELET VOLUME 7.8 fL (7.4-10.4); MONOCYTES % (AUTO) 10 % (2-9); NEUTROPHILS % (AUTO) 65 % (42-75); PLATELET COUNT 271 x10^3/uL (130-400); RED BLOOD COUNT 4.03 x10^6/uL (4.38-5.82); RED CELL DISTRIBUTION WIDTH 14.8 % (9.4-14.8)
[2020-09-25] MEDS ORDERED: SODIUM CHLORIDE FLUSH 10ML SYR IVF ONE (20:30)
[2020-09-25 20:34] LABS: PROTHROMBIN TIME 31.4 Seconds (9.6-11.5)
[2020-09-25 20:35] LABS: ALBUMIN 3.6 g/dL (3.4-5.0); ANION GAP 8 mmol/L (5-15); CALCIUM 8.5 mg/dL (8.5-10.1); CHLORIDE 100 mmol/L (98-107)
[2020-09-25 20:40] LABS: ALANINE AMINOTRANSFERASE 22 U/L (12-78); ALKALINE PHOSPHATASE 72 U/L (45-117); BILIRUBIN,TOTAL 0.4 mg/dL (0.2-1.0); CREATININE 1.47 mg/dL (0.7-1.3); TOTAL PROTEIN 8.3 g/dL (6.4-8.2)
[2020-09-25 20:41] LABS: TROPONIN I 0.333 ng/mL (0.000-0.045)
--- NOTE | 2020-09-25 21:00 | NUR ---
PT SITTING UPRIGHT ON GURNEY, RESTING COMFORTABLY IN ROOM WATCHING TV. PT PROVIDED URINAL PER REQUEST. PT DENIES ANY ADDITIONAL NEEDS AT THIS TIME. CALL LIGHT AND PERSONAL BELONGINGS WITHIN REACH.
[2020-09-25] MEDS ORDERED: FUROSEMIDE 40 MG/4 ML ONE (21:14)
[2020-09-25] MEDS ORDERED: SODIUM CHLORIDE FLUSH 10ML SYR IVF PRN (21:30)
[2020-09-25] MEDS ORDERED: FUROSEMIDE 40 MG/4 ML IV ONE (21:30)
--- NOTE | 2020-09-25 21:43 | NUR ---
Pt to be admitted to [facility], room 508-1. Report called to NIRMAL CASILLAS.
--- NOTE | 2020-09-25 21:48 | NUR ---
HOSPITALIST AT BEDSIDE
--- NOTE | 2020-09-25 21:56 | NUR ---
PT AMBULATORY WITH STEADY GAIT TO BATHROOM. PT PROVIDED NON-SKID SOCKS PER REQUEST, NO ADDITIONAL NEEDS AT THIS TIME. AWAITING TRANSPORT UPSTAIRS FOR ADMISSION
[2020-09-25] MEDS ORDERED: ONDANSETRON 2MG/ML, 2ML IVPush PRN (22:30)
[2020-09-25] MEDS ORDERED: ACETAMINOPHEN 325 MG TABLET PO PRN (22:30)
[2020-09-25] MEDS ORDERED: DILTIAZEM 5 MG/ML, 5ML IVPush PRN (22:30)
[2020-09-25] MEDS ORDERED: MELATONIN 5 MG TABLET PO PRN (22:30)
[2020-09-25] MEDS ORDERED: LABETALOL 5MG/ML, 20ML IVPush PRN (22:30)
[2020-09-25] MEDS: CARVEDILOL 6.25 MG TABLET PO SCH (22:55)
[2020-09-25 23:14] LABS: TROPONIN I 0.319 ng/mL (0.000-0.045)
[2020-09-26 01:58] VITALS: BP 99/68
[2020-09-26 05:20] LABS: BASOPHILS % (AUTO) 1 % (0-1); EOSINOPHILS % (AUTO) 3 % (1-7); LYMPHOCYTES % (AUTO) 20 % (22-44); MEAN CORPUSCULAR HEMOGLOBIN 32.9 pg (27.5-34.5); MEAN CORPUSCULAR HGB CONC 34.2 g/dL (33.2-36.2); MEAN PLATELET VOLUME 8.1 fL (7.4-10.4); MONOCYTES % (AUTO) 13 % (2-9); NEUTROPHILS % (AUTO) 63 % (42-75); PLATELET COUNT 250 x10^3/uL (130-400); RED CELL DISTRIBUTION WIDTH 14.4 % (9.4-14.8)
[2020-09-26 05:21] LABS: INTERNATIONAL NORMALIZED RATIO 2.81 (0.93-1.1); PROTHROMBIN TIME 29.5 Seconds (9.6-11.5)
[2020-09-26 05:23] LABS: MD NO
[2020-09-26 05:25] LABS: ANION GAP 6 mmol/L (5-15); CALCIUM 8.4 mg/dL (8.5-10.1); CHLORIDE 104 mmol/L (98-107)
[2020-09-26 05:34] LABS: CREATININE 1.39 mg/dL (0.7-1.3); TROPONIN I 0.337 ng/mL (0.000-0.045)
[2020-09-26 07:05] VITALS: BP 109/74
[2020-09-26] MEDS ORDERED: FUROSEMIDE 40 MG/4 ML IV ONE (09:00)
[2020-09-26] MEDS: SPIRONOLACTONE 25 MG TABLET PO SCH ×2 (09:00→11:22)
[2020-09-26] MEDS ORDERED: ENALAPRIL 10 MG TABLET PO SCH (09:00)
[2020-09-26] MEDS: SACUBITRIL/VALSARTAN 24MG-26MG TAB PO SCH ×4 (09:00→20:25)
[2020-09-26] MEDS: THIAMINE 100MG TABLET PO SCH (09:19)
[2020-09-26] MEDS: CARVEDILOL 6.25 MG TABLET PO SCH ×2 (09:19→20:11)
[2020-09-26] MEDS: ASPIRIN 81 MG TABLET EC PO SCH (09:34)
[2020-09-26] MEDS ORDERED: POTASSIUM CHLORIDE 20 MEQ TAB.ER.PRT PO ONE (10:30)
[2020-09-26] MEDS ORDERED: REGADENOSON 0.4 MG/5 ML SYRINGE ONE (10:33)
[2020-09-26 12:28] VITALS: BP 103/64
[2020-09-26 17:23] LABS: AMPHETAMINE SCREEN, URINE Negative (Negative); BARBITURATE SCREEN, URINE Negative (Negative); BENZODIAZEPINE SCREEN, URINE Negative (Negative); CANNABINOID SCREEN, URINE Negative (Negative); COCAINE SCREEN, URINE Negative (Negative); METHADONE SCREEN, URINE Negative (Negative); OPIATE SCREEN, URINE Positive (Negative)
[2020-09-26 20:15] VITALS: BP 89/60
[2020-09-26 20:26] VITALS: BP 90/58
[2020-09-26] MEDS ORDERED: ATORVASTATIN 80 MG TABLET PO SCH (21:00)
[2020-09-27 02:57] VITALS: BP 108/71
[2020-09-27 05:18] LABS: ANION GAP 4 mmol/L (5-15); CALCIUM 8.1 mg/dL (8.5-10.1); CHLORIDE 108 mmol/L (98-107); CREATININE 1.24 mg/dL (0.7-1.3)
[2020-09-27 07:05] VITALS: BP 128/71
[2020-09-27 10:11] LABS: INTERNATIONAL NORMALIZED RATIO 1.97 (0.93-1.1); PROTHROMBIN TIME 20.8 Seconds (9.6-11.5)
[2020-09-27] MEDS: CARVEDILOL 6.25 MG TABLET PO SCH (10:32)
[2020-09-27] MEDS: SACUBITRIL/VALSARTAN 24MG-26MG TAB PO SCH (10:39)
[2020-09-27] MEDS: ASPIRIN 81 MG TABLET EC PO SCH (10:39)
[2020-09-27] MEDS: THIAMINE 100MG TABLET PO SCH (10:40)
[2020-09-27] MEDS: SPIRONOLACTONE 25 MG TABLET PO SCH (10:40)
[2020-09-27 12:40] VITALS: BP 109/72
[2020-09-27] MEDS ORDERED: ENAL10TA9 PO (13:56)
[2020-09-27] MEDS ORDERED: CARV12.52 PO (13:56)
[2020-09-27] MEDS ORDERED: SPIR25TA PO (13:56)
[2020-09-27] MEDS ORDERED: FURO20TA3 PO (13:56)
[2020-09-27] MEDS ORDERED: ATOR-2 PO (17:22)
[2020-09-27] MEDS ORDERED: WARFARIN 7.5 MG TABLET PO-COUM ONE (18:00)
== END 2020-09-27 17:41 | disposition home or self-care (01) | DRG 291 ==
LOC: ED 20:35 → EDIP 21:20 → 5SO 22:11
PROVIDERS: ADMIT Family Medicine; ATTEND Family Medicine
DX: I13.0 Hypertensive heart and chronic kidney disease with heart failure and stage 1 through stage 4 chronic kidney disease, or unspecified chronic kidney disease (principal); I50.43 Acute on chronic combined systolic (congestive) and diastolic (congestive) heart failure; D68.69 Other thrombophilia; E87.1 Hypo-osmolality and hyponatremia; I48.20 Chronic atrial fibrillation, unspecified; N17.9 Acute kidney failure, unspecified; I42.0 Dilated cardiomyopathy; E78.5 Hyperlipidemia, unspecified; F10.10 Alcohol abuse, uncomplicated; F17.210 Nicotine dependence, cigarettes, uncomplicated; I25.10 Atherosclerotic heart disease of native coronary artery without angina pectoris; I25.5 Ischemic cardiomyopathy; I27.20 Pulmonary hypertension, unspecified; I45.4 Nonspecific intraventricular block; N18.2 Chronic kidney disease, stage 2 (mild); T45.515A Adverse effect of anticoagulants, initial encounter; F32.9 Major depressive disorder, single episode, unspecified; M10.9 Gout, unspecified; F41.9 Anxiety disorder, unspecified; R10.13 Epigastric pain; I25.2 Old myocardial infarction; Y92.89 Other specified places as the place of occurrence of the external cause; Z95.5 Presence of coronary angioplasty implant and graft; R77.8 Other specified abnormalities of plasma proteins
CPT/HCPCS: 36415; 71045; 78452; 80048; 80053; 80307; 83735; 83880; 84100; 84443; 84484; 85025; 85610; 93005; 93017; 93306; 99285; G0378; J1940; J2785; A9502